=== PATIENT | female | born 1990 | race Caucasian/White ===

== ENCOUNTER 2016-05-31 01:14 | Emergency (ER) | payer OTHER ==
--- NOTE | 2016-05-31 01:29 | ED ---
Laceration/Wound HPI - HPI Summary HPI Summary: 25 F presents with chin laceration today. She states she was sleepy and had two drinks and woke up and felt a little lightheaded and hit her chin on a table. She denies any LOC or hitting her head. Her tetanus is up to date. She denies any nausea, vomiting, or headache. - History of Current Complaint Stated Complaint: LACERATION ON CHIN Time Seen by Provider: 05/31/16 01:20 Pain Intensity: 0 - Allergy/Home Medications Allergies/Adverse Reactions: Allergies Allergy/AdvReac Type Severity Reaction Status Date / Time No Known Allergies Allergy Verified 05/31/16 01:18 PMH/Surg Hx/FS Hx/Imm Hx Endocrine/Hematology History: Denies: Hx Anticoagulant Therapy Cardiovascular History: Denies: Hx Hypertension Infectious Disease History: No Infectious Disease History: Denies: Traveled Outside the [place] in Last 30 Days - Family History Known Family History: Positive: Hypertension - Social History Alcohol Use: Occasionally Substance Use Type: Reports: None Smoking Status (MU): Never Smoked Tobacco Review of Systems Negative: Fever Negative: Chest Pain Negative: Shortness Of Breath Positive: Other - chin laceration All Other Systems Reviewed And Are Negative: Yes Physical Exam Triage Information Reviewed: Yes Vital Signs On Initial Exam: Initial Vitals Temp Pulse Resp BP Pulse Ox 98.8 F 94 18 106/58 100 05/31/16 01:15 05/31/16 01:15 05/31/16 01:15 05/31/16 01:15 05/31/16 01:15 Vital Signs Reviewed: Yes Appearance: Positive: Well-Appearing Skin: Positive: Warm, Dry, Other - 3cm by 1cm width chin laceration Head/Face: Positive: Normal Head/Face Inspection Eyes: Positive: Normal, Conjunctiva Clear ENT: Positive: Normal ENT inspection, Pharynx normal, TMs normal Respiratory/Lung Sounds: Positive: Clear to Auscultation, Breath Sounds Present Cardiovascular: Positive: Normal, RRR Neurological: Positive: Sensory/Motor Intact, Alert, Oriented to Person Place, Time, CN Intact II-III - Darrius Coma Scale Best Eye Response: 4 - Spontaneous Best Motor Response: 6 - Obeys Commands Best Verbal Response: 5 - Oriented Procedures - Laceration/Wound Repair 1 Location: Other - chin Description: Linear Anesthesia: Local, 1.0%, Epi Length, Depth and Shape: 3 cm length by 1 cm width Betadine Prep?: No Irrigated w/ Saline (ccs): 100 Laceration/Wound Explored: clean Closure: Multilayer Suture Type: Prolene - 6-0, Chromic - 6-0 Number of Sutures: 5 Layer Closure?: Yes - 1 deep, 4 superfical Diagnostics - Vital Signs Vital Signs Temp Pulse Resp BP Pulse Ox 05/31/16 01:15 98.8 F 94 18 106/58 100 - Laboratory Lab Statement: Any lab studies that have been ordered have been reviewed, and results considered in the medical decision making process. Laceration Repair Course/Dx - Course Course Of Treatment: 25F presents with chin laceration, denies any LOC or head injury, normal neuro exam, due to width of laceration placed 1 deep absorbable suture and 4 superficial, told to have removed in 5 days and that can scar, patient understands and agrees with plan - Differential Dx Differental Diagnoses: Abrasion, Avulsion, Laceration - Clinical Impression Provider Diagnoses: Laceration of chin Discharge - Discharge Plan Condition: Good Disposition: HOME Patient Education Materials: Care For Your Stitches (ED) Additional Instructions: Keep area clean and dry for 48 hours Take Tylenol or ibuprofen for pain every 6 hours Return to ED or primary for suture removal in 5 days Return to ED if develop signs of infection such as fever, spreading redness, or pus formation
[2016-05-31 02:19] VITALS: BP 107/70
== END 2016-05-31 02:12 | disposition home or self-care (01) ==
LOC: ED 01:14
DX: S01.81XA Laceration without foreign body of other part of head, initial encounter (principal); W19.XXXA Unspecified fall, initial encounter; Y93.9 Activity, unspecified; Y92.9 Unspecified place or not applicable
CPT/HCPCS: 12013; 99281